=== PATIENT | female | born 1940 | race Asian ===

== ENCOUNTER 2020-12-29 10:02 | Emergency (ER) | payer MEDICARE, SELFPAY ==
[2020-12-29 10:06] VITALS: BP 153/67; PULSE 65; RESP 14; TEMP 36.2; O2SAT 99; BMI 24.3
[2020-12-29 11:37] LABS: COVID19 -Nasal RAPID Negative (Negative)
--- NOTE | 2020-12-29 11:43 | ED.RECABL ---
HPI - Recheck/Abnormal Lab/Rx General Chief Complaint: Recheck/Abnormal Lab/Rx Stated Complaint: Neighbor Had COVID Time Seen by Provider: 12/29/20 11:27 Source: patient Mode of arrival: Ambulatory Limitations: no limitations History of Present Illness HPI narrative: This is a 80-year-old female that is vaccinated for COVID. She arrivedrequesting a COVID test along with her spouse. Patient's are currently living in an [facility] they live half the year here and half the year in [place]. Their neighbors both tested positive for COVID and 1 neighbor . Patient denies any symptoms. Related Data Allergies Allergy/AdvReac Type Severity Reaction Status Date / Time No Known Drug Allergies Allergy Verified 12/29/20 10:10 Review of Systems Review of Systems ROS Unobtainable: All systems reviewed & are unremarkable except as noted in HPI and below Patient History Social History Smoking Status: Never smoker Smoking Status: Never smoker alcohol intake frequency: 0-2 drinks per day Substance Use Type: does not use Exam Narrative Exam Narrative: GENERAL: Alert and oriented x three, female in mild distress. HEENT: Head normocephalic, atraumatic, EOMI, pupils reactive, face symmetric, moist mucous membranes NECK: Supple, full range of motion CARDIOVASCULAR: Regular rate and rhythm without murmurs, rubs or gallops. RESPIRATORY: Breath sounds equal bilaterally, no wheezes rales or rhonchi. ABDOMEN: Soft, nontender. Normoactive bowel sounds all 4 quadrants. No guarding or rebound, rigidity, no mass : No CVA tenderness EXTREMITIES: Normal range of motion. Neurovascularly intact NEUROLOGICAL: Cranial nerves II through XII grossly intact. Moving all extremities SKIN: Warm, dry, no petechiae, no rashes or lesions. Initial Vital Signs Initial Vital Signs: Vital Signs Temperature 97.1 F L 12/29/20 10:06 Pulse Rate 65 12/29/20 10:06 Respiratory Rate 14 12/29/20 10:06 Blood Pressure 153/67 H 12/29/20 10:06 Pulse Oximetry 99 12/29/20 10:06 Course Orders Ordered: ED Orders 12/29/20 10:15 COVID19 -Nasal swab/Pre-Proc Stat Vital Signs Vital signs: Vital Signs - 8 hr 12/29/20 10:06 Temperature 97.1 F L Pulse Rate 65 Respiratory Rate 14 Blood Pressure 153/67 H Pulse Oximetry 99 MDM - Recheck/Abnormal Lab/Rx Lab Data Labs: Lab Results 12/29/20 Range/Units 10:15 SARS-CoV-2 (PCR) Negative (Negative) MDM Narrative Medical decision making narrative: This is a 80-year-old female who is asymptomatic, vaccinated but concerned about possible COVID infection secondary to their neighbors being positive in 1 of their neighbors dying. Testing here today is negative. Return precautions discussed. Discharge Plan Departure Patient Disposition: Home Clinical Impression: Patient request for diagnostic testing Activity Restrictions/Additional Instructions: Your COVID swab today is negative. If you develop any new symptoms I would recommend repeat testing. I wish you safe travels when you return to [place].
== END 2020-12-29 12:21 | disposition home or self-care (01) ==
PROVIDERS: Emergency Provider Emergency Medicine
DX: Z20.822 Contact with and (suspected) exposure to COVID-19 (principal)
CPT/HCPCS: 87635; 99281; 99282; C9803